=== PATIENT | female | born 1985 | race Caucasian/White ===

== ENCOUNTER → 2016-07-03 | Outpatient (CLI) | payer OTHER ==
[~2016-07-03] MED LIST: IBUP800T23 PO; PARAIUD
--- NOTE | 2016-07-03 18:11 | RADRPT ---
EXAM DATE/TIME: 07/03/2016 09:34 [place] COMPARISON: No previous studies available for comparison. INDICATIONS : Pelvic pain. MEDICAL HISTORY : Pelvic pain. Ovarian cysts. SURGICAL HISTORY : None. ENCOUNTER: Initial ACUITY: 1 month PAIN SCORE: 0/10 LOCATION: Bilateral pelvis MEASUREMENTS: UTERUS: 6.8 x 5.4 x 3.7 cm ENDOMETRIAL STRIPE: 6 mm RIGHT OVARY: 2.9 x 3.2 x 2.3 cm LEFT OVARY: 3.4 x 1.5 x 2.6 cm FINDINGS: Intrauterine device is present in the lower uterus towards the lower uterine segment. Left ovary cont ains a complex 2.1 cm circumscribed lesion, possibly a ruptured corpus luteum cyst. Small follicular cysts right ovary. Small amount of free fluid. CONCLUSION: 1. Intrauterine device in the lower uterine segment. 2. Complex cyst measuring 2.1 cm and left ovary, possibly corpus luteum cyst. Additional follicular c ysts in both ovaries. 3. Small amount free fluid. Fahad Pete MD on July 03, 2016 at 18:07 Board Certified Radiologist. This report was verified electronically.
== END ==
LOC: HRAD 09:12
DX: N83.209 Unspecified ovarian cyst, unspecified side (principal)
CPT/HCPCS: 76830; 76856